=== PATIENT | female | born 1985 | race Caucasian/White ===

== ENCOUNTER 2017-04-02 10:45 | Emergency (ER) | payer OTHER ==
[~2017-04-02 10:45] MED LIST: ALBU2.5V5 NEB; DIPH25CA58 PO; HYDR-971 PO; IBUP100O24 PO; IBUP400T18 PO; LEVE500T56 PO; LEVE500T6 PO; LORA1TAB PO; PRED-220 PO; PRED20TA PO; PRED50TA PO; SPIR50TA2 PO; TAPE75TA3 PO; TOPI50TA38 PO; TRAM50TA PO; TRAZADONE PO; [UNRECOGNIZED DRUG - OTHER]; [UNRECOGNIZED DRUG - OTHER]
[2017-04-02 10:55] VITALS: BP 148/77
--- NOTE | 2017-04-02 11:17 | PHYS DOC ---
Past History Past Medical History: Depression, Fibromyalgia, Hypertension, Kidney Infection Past Surgical History: No Surgical History Alcohol Use: None Drug Use: None Adult General Chief Complaint Chief Complaint: HIP PAIN HPI HPI 32-year-old female presenting to the emergency department with left hip pain. She states this started while she was trying to get into bed. She thinks she might have "thrown her hip out". She has a history of hyper mobility of her joints. She reports that the pain is sharp severe radiating down her leg and worse with movement of the leg. She denies numbness weakness or tingling. Review of systems is negative for knee pain or ankle pain proximally. She denies abdominal pain. All other review of systems is negative unless otherwise noted in history of present illness. Pertinent physical exam shows neurovascularly intact lower extremities. Palpable pulse. 2 second cap refill. Patient has pain with passive range of motion of the left hip. Knee is nontender with normal range of motion. ED course: 32-year-old female presenting to the emergency department with left hip pain. X-rays obtained. Oral pain medications prescribed and administered. X- rays negative. The patient was then discharged home in stable condition to follow up with their primary care physician over the next 2-3 days. They were to return if their symptoms worsened or if they were concerned for any reason. [id number] discharge instructions and return precautions were given. Patient' s questions were answered to their satisfaction. Patient is comfortable plan. Review of Systems Review of Systems SEE ABOVE. Allergies Allergies Allergies Coded Allergies Type Severity Reaction Last Updated Verified tramadol Allergy Intermediate seizures 06/07/16 Yes Physical Exam Physical Exam Constitutional: Well developed, well nourished, no acute distress, non-toxic appearance. [] HENT: Normocephalic, atraumatic, bilateral external ears normal, oropharynx moist, no oral exudates, nose normal. [] Eyes: PERRLA, EOMI, conjunctiva normal, no discharge. [] Neck: Normal range of motion, no tenderness, supple, no stridor. [] Cardiovascular:Heart rate regular rhythm, no murmur [] Lungs & Thorax: Bilateral breath sounds clear to auscultation [] Abdomen: Bowel sounds normal, soft, no tenderness, no masses, no pulsatile masses. [] Skin: Warm, dry, no erythema, no rash. [] Back: No tenderness, no CVA tenderness. [] Extremities: see above Neurologic: Alert and oriented X 3, normal motor function, normal sensory function, no focal deficits noted. [] Psychologic: Affect normal, judgement normal, mood normal. [] EKG EKG [] Radiology/Procedures Radiology/Procedures [] Course & Med Decision Making Course & Med Decision Making Pertinent Labs and Imaging studies reviewed. (See chart for details) [] Dragon Disclaimer Dragon Disclaimer This chart was dictated in whole or in part using Voice Recognition software in a busy, high-work load, and often noisy Emergency Department environment. It may contain unintended and wholly unrecognized errors or omissions. Departure Departure: Impression: Primary Impression: Left hip pain Disposition: HOME, SELF-CARE Condition: STABLE Referrals: CORONA LOZA (PCP) Patient Instructions: Hip Pain Additional Instructions: Thank you for allowing us to participate in your care today. Followup with your primary care physician in 3 days if your symptoms do not improve. If you do not have a primary care provider you can ask for a list of our primary care providers. Return to the emergency department you have any new or concerning findings. This should be evaluated by the primary care physician and any necessary consulting services for continued management within a few days after discharge. Return to emergency room if you have any new or concerning symptoms including but not limited to fever, chills, nausea, vomiting, intractable pain, any new rashes, chest pain, shortness of air, uncontrolled bleeding, difficulty breathing, and/or vision loss. Scripts Ibuprofen (IBUPROFEN) 400 Mg Tablet 1 TAB PO PRN Q8HRS Y for PAIN, #20 TAB Prov: URBAN CÁRDENAS MD 04/02/17 URBAN CÁRDENAS MD Apr 02, 2017 11:17
--- NOTE | 2017-04-02 11:33 | RAD ---
Indication: Left hip pain. Time of exam 11:24 AM An AP view of the pelvis and 2 views of the left hip were obtained. Femoral acetabular alignment is normal. The hip joint space is well-maintained. The femoral heads and necks are intact. No fractures are seen. The rami are unremarkable. Impression: No acute bony abnormality is detected.
[2017-04-02] MEDS ORDERED: HYDROcodone/APAP 5/325MG 1 TAB TABLET PO ONE (11:40)
[2017-04-02] MEDS ORDERED: IBUP400T18 PO (11:45)
== END 2017-04-02 11:55 | disposition home or self-care (01) ==
LOC: ER 10:45
DX: M25.552 Pain in left hip (principal); M79.7 Fibromyalgia; I10 Essential (primary) hypertension; Z87.442 Personal history of urinary calculi; Z88.6 Allergy status to analgesic agent; X58.XXXA Exposure to other specified factors, initial encounter; Y93.89 Activity, other specified; Y99.8 Other external cause status; Y92.89 Other specified places as the place of occurrence of the external cause
CPT/HCPCS: 73502; 99284

== ENCOUNTER 2017-04-13 16:15 | Emergency (ER) | payer OTHER ==
[~2017-04-13] VITALS: Ht 157.5 cm; Wt 78.0 kg
[2017-04-13 17:13] LABS: BASO % 1 % (0-3); EOS % 0 % (0-3); HEMATOCRIT 40.8 % (36.0-47.0); HEMOGLOBIN 14.2 g/dL (12.0-15.5); LYMPH # 1.8 x10^3/uL (1.0-4.8); LYMPH % 23 % (24-48); MEAN CORPUSCULAR HEMOGLOBIN 32 pg (25-35); MEAN CORPUSCULAR HGB CONC 35 g/dL (31-37); MEAN CORPUSCULAR VOLUME 91 fL (79-100); MONO # 0.7 x10^3/uL (0.0-1.1); MONO % 9 % (0-9); NEUT # 5.5 x10^3uL (1.8-7.7); NEUT % 68 % (31-73); PLATELET COUNT 289 x10^3/uL (140-400); RED BLOOD COUNT 4.49 x10^6/uL (3.50-5.40); RED CELL DISTRIBUTION WIDTH 12.3 % (11.5-14.5); WHITE BLOOD COUNT 8.1 x10^3/uL (4.0-11.0)
[2017-04-13 17:14] LABS: ALBUMIN 4.4 g/dL (3.4-5.0); ALBUMIN/GLOBULIN RATIO 1.2 (1.0-1.7); CALCIUM 9.3 mg/dL (8.5-10.1); GFR 65.1; POTASSIUM 3.4 mmol/L (3.5-5.1); TOTAL BILIRUBIN 0.6 mg/dL (0.2-1.0)
--- NOTE | 2017-04-13 17:14 | EKG ---
[address] [address] Test Date: 2017-04-13 Test Time: 16:56:02 Pat Name: DEEPIKA DIXON Department: Room: Gender: F Skip Loader: SAKINA : 1985 Requested By: GREGG PEDRO Order Number: [id number] Reading MD: Geo Palencia Measurements Intervals [place] Rate: 87 P: 33 CA: 184 QRS: 68 QRSD: 84 T: 40 QT: 344 QTc: 414 Interpretive Statements SINUS RHYTHM INCOMPLETE RIGHT BUNDLE BRANCH BLOCK Electronically Signed On 04-14-2017 11:13:53 CDT by Geo Palencia
--- NOTE | 2017-04-13 18:12 | ED.ADGEN ---
Past History Past Medical History: Fibromyalgia, Migraines, Renal Disease, Seizure, Other Past Surgical History: , Other Alcohol Use: Rarely Drug Use: None Adult General Chief Complaint Chief Complaint Chest pain, lightheadedness dizziness HPI HPI Patient is a 32 year old female who presents with lightheadedness dizziness when she tries stand up and then chest pain. She states over the last week her blood pressures been getting lower and her heart rates been increasing. She states that she gets up approximately 2 minutes later she started feeling very lightheaded dizzy and started having chest pain. She's been being evaluated by a retail delivery driver for possible autoimmune process but nothing been found as of yet. She saw her primary care physician today and they could not find a pulse on her her blood pressure when the symptoms going on and she felt extremely dizzy and like she was going to pass out. Currently laying down she denies any chest pain fevers chills nausea or vomiting. She states her mom had a heart attack at the age of 32 and her sister was born with congenital heart anomalies. Review of Systems Review of Systems Constitutional: Denies fever or chills [] Eyes: Denies change in visual acuity, redness, or eye pain [] HENT: Denies nasal congestion or sore throat [] Respiratory: Denies cough or shortness of breath [] Cardiovascular: No additional information not addressed in HPI [] GI: Denies abdominal pain, nausea, vomiting, bloody stools or diarrhea [] : Denies dysuria or hematuria [] Musculoskeletal: Denies back pain or joint pain [] Integument: Denies rash or skin lesions [] Neurologic: Denies headache, focal weakness or sensory changes [] Endocrine: Denies polyuria or polydipsia [] Current Medications Current Medications Current Medications Medications (Trade) Dose Ordered Sig/Darius Start Time Stop Time Status Last Admin Dose Admin Sodium Chloride 1,000 ml @ 1,000 mls/hr 1X ONCE 04/13/17 20:00 04/13/17 20:59 DC 04/13/17 20:00 1,000 MLS/HR Allergies Allergies Allergies Coded Allergies Type Severity Reaction Last Updated Verified tramadol Allergy Intermediate seizures 06/07/16 Yes Physical Exam Physical Exam Constitutional: Well developed, well nourished, no acute distress, non-toxic appearance. [] HENT: Normocephalic, atraumatic, bilateral external ears normal, oropharynx moist, no oral exudates, nose normal. [] Eyes: PERRLA, EOMI, conjunctiva normal, no discharge. [] Neck: Normal range of motion, no tenderness, supple, no stridor. [] Cardiovascular:Heart rate regular rhythm, no murmur [] Lungs & Thorax: Bilateral breath sounds clear to auscultation [] Abdomen: Bowel sounds normal, soft, no tenderness, no masses, no pulsatile masses. [] Skin: Warm, dry, no erythema, no rash. [] Back: No tenderness, no CVA tenderness. [] Extremities: No tenderness, no cyanosis, no clubbing, ROM intact, no edema. [] Neurologic: Alert and oriented X 3, normal motor function, normal sensory function, no focal deficits noted. [] Psychologic: Affect normal, judgement normal, mood normal. [] Current Patient Data Vital Signs Vital Signs Date Time Temp Pulse Resp B/P (MAP) Pulse Ox O2 Delivery O2 Flow Rate FiO2 04/13/17 19:45 96 20 104/70 (81) 99 Room Air 04/13/17 17:06 97.8 Lab Results Laboratory Tests Test 04/13/17 16:45 04/13/17 17:45 White Blood Count 8.1 x10^3/uL (4.0-11.0) Red Blood Count 4.49 x10^6/uL (3.50-5.40) Hemoglobin 14.2 g/dL (12.0-15.5) Hematocrit 40.8 % (36.0-47.0) Mean Corpuscular Volume 91 fL (79-100) Mean Corpuscular Hemoglobin 32 pg (25-35) Mean Corpuscular Hemoglobin Concent 35 g/dL (31-37) Red Cell Distribution Width 12.3 % (11.5-14.5) Platelet Count 289 x10^3/uL (140-400) Neutrophils (%) (Auto) 68 % (31-73) Lymphocytes (%) (Auto) 23 % (24-48) L Monocytes (%) (Auto) 9 % (0-9) Eosinophils (%) (Auto) 0 % (0-3) Basophils (%) (Auto) 1 % (0-3) Neutrophils # (Auto) 5.5 x10^3uL (1.8-7.7) Lymphocytes # (Auto) 1.8 x10^3/uL (1.0-4.8) Monocytes # (Auto) 0.7 x10^3/uL (0.0-1.1) Eosinophils # (Auto) 0.0 x10^3/uL (0.0-0.7) Basophils # (Auto) 0.0 x10^3/uL (0.0-0.2) Platelet Estimate Increased (ADEQUATE) Large Platelets Present D-Dimer (Christy) 0.22 mg/L (0.00-0.50) Sodium Level 138 mmol/L (136-145) Potassium Level 3.4 mmol/L (3.5-5.1) L Chloride Level 103 mmol/L (98-107) Carbon Dioxide Level 26 mmol/L (21-32) Anion Gap 9 (6-14) Blood Urea Nitrogen 15 mg/dL (7-20) Creatinine 1.0 mg/dL (0.6-1.0) Estimated GFR (Cockcroft-Gault) 65.1 BUN/Creatinine Ratio 15 (6-20) Glucose Level 122 mg/dL (70-99) H Calcium Level 9.3 mg/dL (8.5-10.1) Total Bilirubin 0.6 mg/dL (0.2-1.0) Aspartate Amino Transferase (AST) 32 U/L (15-37) Alanine Aminotransferase (ALT) 26 U/L (14-59) Alkaline Phosphatase 58 U/L (46-116) Troponin I Quantitative < 0.017 ng/mL (0-0.055) Total Protein 8.0 g/dL (6.4-8.2) Albumin 4.4 g/dL (3.4-5.0) Albumin/Globulin Ratio 1.2 (1.0-1.7) Urine Collection Type Unknown Urine Color Yellow Urine Clarity Cloudy Urine pH 6.0 Urine Specific Gallant 1.020 Urine Protein Trace (NEG-TRACE) Urine Glucose (UA) Neg mg/dL (NEG) Urine Ketones (Stick) 15 mg/dL (NEG) Urine Blood Large (NEG) Urine Nitrite Neg (NEG) Urine Bilirubin Neg (NEG) Urine Urobilinogen Dipstick 1 mg/dL (0.2 mg/dL) Urine Leukocyte Esterase Neg (NEG) Urine RBC 6-10 /HPF (0-2) Urine WBC 1-4 /HPF (0-4) Urine Squamous Epithelial Cells Many /LPF Urine Bacteria 0 /HPF (0-FEW) Urine Mucus Marked /LPF EKG EKG EKG shows sinus rhythm with rate of [address] elevations or T-wave inversions, early repolarization in V4 V5 V6 noted, normal axis, QTC 4 and 14 ms , as interpreted by me. Radiology/Procedures Radiology/Procedures One view chest x-ray did not show any focal consolidations, bony abdomen eyes, pneumothorax, as interpreted by me. Course & Med Decision Making Course & Med Decision Making Pertinent Labs and Imaging studies reviewed. (See chart for details) Labs show any acute abdomen allergies. She is tachycardic when she stands up. She received a liter of fluids and being admitted to the hospitalist at [facility]. I suspect she might have an aspect of adrenal insufficiency, hypothyroidism or other autoimmune process going on based on her history and vitals. She is in stable condition this time being admitted. Final Impression Final Impression Headache hypotension Intermittent chest pain History of his tobacco abuse History of coronary disease Problems: Dragon Disclaimer Dragon Disclaimer This electronic medical record was generated, in whole or in part, using a voice recognition dictation system. RORY JOINER MD Apr 13, 2017 18:12
[2017-04-13 18:55] LABS: BILIRUBIN,URINE NEG (NEG); CLARITY,URINE CLOUDY; COLOR,URINE YELLOW; GLUCOSE,URINE NEG (NEG); NITRITE,URINE NEG (NEG); UROBILINOGEN,URINE 1 mg/dL (0.2 mg/dL)
[2017-04-13 18:57] LABS: BACTERIA,URINE 0 /HPF (0-FEW); SQUAMOUS EPITHELIAL CELL,UR MANY /LPF
[2017-04-13 19:45] VITALS: BP 104/70
[2017-04-13] MEDS ORDERED: IV NORMAL SALINE 1,000ML 1,000 ML IV ONE (20:00)
[2017-04-13 20:43] LABS: PLT ESTIMATE INCREASED (ADEQUATE)
--- NOTE | 2017-04-14 08:07 | RAD ---
Portable chest, 04/13/2017: History: Chest pain Comparison is made to a study from 04/10/2016. The heart size and pulmonary vascularity are normal. The lungs are clear. There is no evidence of pleural fluid. IMPRESSION: No acute cardiopulmonary abnormality is detected.
[2017-04-14 13:50] LABS: FREE T4 1.01 ng/dL (0.76-1.46); THYROID STIM HORMONE (TSH) 2.702 uIU/mL (0.358-3.740)
== END 2017-04-13 22:35 | disposition short-term general hospital (02) ==
LOC: ER 16:15
DX: I95.9 Hypotension, unspecified (principal); R51 Headache; R07.89 Other chest pain; I25.10 Atherosclerotic heart disease of native coronary artery without angina pectoris; G43.909 Migraine, unspecified, not intractable, without status migrainosus; N28.9 Disorder of kidney and ureter, unspecified; M79.7 Fibromyalgia; Z88.6 Allergy status to analgesic agent
CPT/HCPCS: 36415; 71010; 80053; 81001; 84439; 84443; 84484; 85008; 85027; 85379; 93005; 96360; 99285-25; J7030

== ENCOUNTER → 2017-08-05 | Outpatient (CLI) | payer OTHER ==
--- NOTE | 2017-08-05 12:45 | RAD ---
KNEE LEFT 3V Clinical Indication: LEFT HIP AND KNEE PAIN, POP AND CLICK, FALL EARLIER IN THE YR Comparison: None. Findings: No acute fracture or malalignment. The joint spaces are maintained. No suprapatellar joint effusion. Bony mineralization is normal for the patient's age. No significant soft tissue abnormality. No radiopaque foreign body. IMPRESSION: No acute fracture or malalignment.
--- NOTE | 2017-08-05 12:50 | RAD ---
Hand x-rays Indication: Left hip and knee pain. Fall earlier in the year. Technique: AP pelvis and single view of the left hip joint Comparison: Previous study from 04/02/2017 Findings: No acute fracture or dislocation. No significant evidence of arthritic process. SI joints within normal limits. Impression: No Acute findings.
== END | disposition home or self-care (01) ==
LOC: DXRADRC 10:50
PROVIDERS: ATTEND Family Medicine
DX: M25.552 Pain in left hip (principal); M25.562 Pain in left knee; Z91.81 History of falling
CPT/HCPCS: 73501; 73562

== ENCOUNTER 2017-09-21 12:22 | Emergency (ER) | payer OTHER ==
[~2017-09-21] VITALS: Ht 162.6 cm; Wt 72.6 kg
[2017-09-21 12:46] VITALS: BP 115/61
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
== END 2017-09-21 13:21 | disposition home or self-care (01) ==
LOC: ER 12:22
DX: M54.89 Other dorsalgia (principal); M25.512 Pain in left shoulder; M25.552 Pain in left hip; Z88.6 Allergy status to analgesic agent; V49.40XA Driver injured in collision with unspecified motor vehicles in traffic accident, initial encounter; Y93.89 Activity, other specified; Y92.488 Other paved roadways as the place of occurrence of the external cause; Y99.8 Other external cause status
CPT/HCPCS: 99281